=== PATIENT | female | born 1945 | race Caucasian/White ===

== ENCOUNTER 2017-04-25 13:15 | Emergency (ER) | payer OTHER, MEDICAID ==
[2017-04-25 13:43] VITALS: BMI 25.6
--- NOTE | 2017-04-25 13:55 | DR.GENAD ---
HPI - PCP Primary Care Physician: cici - HPI Comment HPI Comment: DIZZINESS AND CONFUSION WITH GENERALIZE WEAKNESS PER PATIENTS DAUGHTER. SHE SAID HER FEET GET DISCOLOR WHEN SHE SIT AND RETURN TO NORMAL COLOR WHEN SHE LAY DOWN. PATIENT HAVE HISTORY OF BRAIN ANEURYSM POST SURGERY. - Complaint/Symptoms Chief Complaint Doctors Comments: DIZZINESS, EVALUATED BY HOME HEALTH NURSE AND REFER TO ED. Chief Complaint:: weakness and period of lightheadedness that has resolved Self Treatment fo Chief Complaint: WAS EVALUATED BY HOME HEALTH NURSE AND INSTRUCTED TO BE EVAULUATED. PT DECIDED TO COME TO OUR FACILTIY AFTER REFUSING TO GO TO [facility] - Nurses notes reviewed Nurses Notes Review: Yes - Source History Provided: Patient, EMS - Mode of Arrival Mode of Arrival: EMS - Timing Onset of Chief Complaint: 04/25/17 Came on: Suddenly - Duration Duration: Since Onset Duration: Hours - Severity Severity: Moderate PMH - PMH Past Medical History: Yes Past Medical History: Arthritis, Hypertension Past Medical History Comment: HX OF BRAIN ANEURYSM WITH REPAIR Past Surgical History: Yes Past Surgical History Comment: BRAIN SURGERY - Family History History of Family Medical Conditions: Yes Family Medical History: Diabetes Mellitus, Cancer, [place], Coronary Artery Disease, Heart Failure, Sudden Cardiac , Hypertension - Social History Does patient currently use any type of tobacco product: Yes Type of Tobacco Use: Cigarettes Lives With: Family Lives Where: Home - infectious screening In the last 2 months have you had wt loss of >10#?: YES Have you had fever, night sweats or hemotysis?: No Have you traveled outside the country in the last 6 months?: No Isolation: Standard ROS - Review of Systems Constitutional: Weakness, Fatigue. negative: Chills, Fever Eyes: No Symptoms Reported. negative: Eye Pain, Discharge ENTM: No Symptoms Reported. negative: Ear Pain, Nose Discharge, Nose Congestion , Throat Pain Respiratoy: Non-Productive Cough, Short of Breath. negative: Wheezing, Hemoptysis Cardiovascular: negative: Chest Pain, Edema, Palpitations Gastrointestinal/Abdominal: Nausea. negative: Abdominal Pain, Vomiting Genitourinary: No Symptoms Reported. negative: Dysuria, Frequency, Hematuria Neurological: Headache, Weakness, Dizziness Musculoskeletal: Back Pain, Muscle Pain Integumentary: Change in Color (FEET TURN BLUE SITTING.) Hematologic/Lymphatic: Easy Bruising Endocrine: No Symptoms Reported All Other Systems: Reviewed and Negative PE - Vital Signs Vitals: Temperature 97 F Pulse Rate 53 Respiratory Rate 14 Blood Pressure 155/67 O2 Sat by Pulse Oximetry 99 - General Limitations: No Limitations General Appearance: Alert - Head Head Exam: Normal Inspection - Eyes Eye exam: PERRL, EOMI. negative: Scleral Icterus, Conjunctival Injection - ENT ENT Exam: Normal External Ear Exam External Ear Exam: Normal External Inspection TM/Canal Exam: Bilateral Normal Nose Exam: Normal Nose Exam Mouth Exam: Normal Inspection Throat Exam: Normal Inspection - Neck Neck Exam: Trachea Midline - Chest Chest Inspection: Symmetric Chest Wall Rise - Respiratory Respiratory Exam: Normal Lung Sounds Bilat Respiratory Exam: Bilateral Rhonchi, Lower Rhonchi - Cardiovascular Cardiovascular Exam: Regular Rate, Normal Rhythm, Normal Heart Sounds - Abdominal Exam Abdominal Exam: Normal Bowel Sounds, Soft. negative: Tenderness - Extremities Extremities Exam: Other (FEET TURN BLUE SITTING.) - Back Back Exam: Normal Inspection - Neurologic Neurological Exam: Alert, Oriented X3 - Psychiatric Psychiatric Exam: Normal Affect, Normal Mood - Skin Skin Exam: Dry, Erythema MDM - Additional Information Additional Information Obtained From: Family - Differential Diagnosis Differential Diagnosis: GENERALIZE WEAKNESS, VERTIGO, CVA, TIA, AMS Course - Consultation Consultation Comments: DISCUSS PATIENT WITH DR. ARNETT. HE WILL ADMIT PATIENT. - Education/Counseling Education/Counseling: Patient, Family, Education Educated On: Diagnosis, Needs for Follow Up ROR - Labs Reviewed Laboratory Results Reviewed?: Yes Result Diagrams: 04/25/17 14:21 04/25/17 14:21 Laboratory: WBC 8.8 X10^3/uL (3.6-10.0) 04/25/17 14:21 RBC 4.47 X10^6/uL (3.5-5.4) 04/25/17 14:21 Hgb 13.5 g/dL (12.0-16.0) 04/25/17 14:21 Hct 40.6 % (36.0-47.0) 04/25/17 14:21 MCV 90.8 fL (80.0-100.0) 04/25/17 14:21 MCH 30.3 pg (27.0-34.0) 04/25/17 14:21 MCHC 33.3 g/dL (33.0-35.0) 04/25/17 14:21 RDW 14.0 % (11.6-16.5) 04/25/17 14:21 Plt Count 234 X10^3/uL (150.0-450.0) 04/25/17 14:21 MPV 7.8 fL (7.4-11.0) 04/25/17 14:21 Neut % 80.1 % (42.0-75.0) H 04/25/17 14:21 Lymph % 14.6 % (21.0-51.0) L 04/25/17 14:21 [place] % 3.9 % (0.0-13.0) 04/25/17 14:21 Eos % 0.7 % (0.9-2.9) L 04/25/17 14:21 Baso % 0.7 % (0.2-1.0) 04/25/17 14:21 Neut # 7.1 x10^3/uL (2.2-4.8) H 04/25/17 14:21 Lymph # 1.3 X10^3/uL (1.3-2.9) 04/25/17 14:21 [place] # 0.3 x10^3/uL (0.3-0.8) 04/25/17 14:21 Eos # 0.1 x10^3/uL (0.0-0.2) 04/25/17 14:21 Baso # 0.1 X10^3/uL (0.0-0.1) 04/25/17 14:21 Absolute Nucleated RBC 0.0 /100WBC 04/25/17 14:21 Sodium 149 mmol/L (136-145) H 04/25/17 14:21 Corrected Sodium 149 mmol/L (136-145) H 04/25/17 14:21 Potassium 4.2 mmol/L (3.5-5.1) 04/25/17 14:21 Chloride 113 mmol/L (98-107) H 04/25/17 14:21 Carbon Dioxide 30.8 mmol/L (21-32) 04/25/17 14:21 BUN 15 mg/dL (7-18) 04/25/17 14:21 Creatinine 0.41 mg/dL (0.55-1.02) L 04/25/17 14:21 Est GFR (MDRD) Af Amer > 60 (>60) 04/25/17 14:21 Est GFR (MDRD) Non-Af > 60 (>60) 04/25/17 14:21 Glucose 119 mg/dL (65-99) H 04/25/17 14:21 Calcium 8.9 mg/dL (8.5-10.1) 04/25/17 14:21 Corrected Calcium 9.6 mg/dL (8.5-10.1) 04/25/17 14:21 Total Bilirubin 0.20 mg/dL (0.2-1.0) 04/25/17 14:21 AST 18 Units/L (15-37) 04/25/17 14:21 ALT 24 Units/L (12-78) 04/25/17 14:21 Alkaline Phosphatase 72 Units/L (46-116) 04/25/17 14:21 Creatine Kinase 149 Units/L (26-192) 04/25/17 16:10 CK-MB (CK-2) 5.4 ng/mL (0-4.0) H* 04/25/17 16:10 CK/CKMB % Calc 3.6 % (<4) 04/25/17 16:10 Troponin I < 0.02 ng/mL (0-1.5) 04/25/17 16:10 Total Protein 6.9 g/dL (6.4-8.2) 04/25/17 14:21 Albumin 3.1 g/dL (3.4-5.0) L 04/25/17 14:21 Globulin 3.8 g/dL (2.5-4.5) 04/25/17 14:21 Albumin/Globulin Ratio 0.8 Ratio (1.1-2.1) L 04/25/17 14:21 - XRAY XRAY Interpreted by: Radiologist XRAY Findings: REPORT DISCUSS WITH PATIENT AND FAMILY. - EKG Rhythm: NSR (EKG NOTED) - Diagnosis Discharge Problem: Generalized weakness, Dizziness Altered mental state Qualifiers: Altered mental status type: transient alteration of awareness Qualified Code(s) : R40.4 - Transient alteration of awareness - Discharge Plan Disposition: 01 HOME, SELF-CARE Condition: Stable - Follow ups/Referrals - Instructions
[2017-04-25 14:31] LABS: BASOPHILS # (AUTO) 0.1 X10^3/uL (0.0-0.1); BASOPHILS % (AUTO) 0.7 % (0.2-1.0); EOSINOPHILS # (AUTO) 0.1 x10^3/uL (0.0-0.2); EOSINOPHILS % (AUTO) 0.7 % (0.9-2.9); HEMATOCRIT 40.6 % (36.0-47.0); HEMOGLOBIN 13.5 g/dL (12.0-16.0); LYMPHOCYTES # (AUTO) 1.3 X10^3/uL (1.3-2.9); LYMPHOCYTES % (AUTO) 14.6 % (21.0-51.0); MEAN CORPUSCULAR HEMOGLOBIN 30.3 pg (27.0-34.0); MEAN CORPUSCULAR HGB CONC 33.3 g/dL (33.0-35.0); MEAN CORPUSCULAR VOLUME 90.8 fL (80.0-100.0); MEAN PLATELET VOLUME 7.8 fL (7.4-11.0); MONOCYTES # (AUTO) 0.3 x10^3/uL (0.3-0.8); MONOCYTES % (AUTO) 3.9 % (0.0-13.0); NEUTROPHILS # (AUTO) 7.1 x10^3/uL (2.2-4.8); NEUTROPHILS % (AUTO) 80.1 % (42.0-75.0); PLATELET COUNT 234 X10^3/uL (150.0-450.0); RED BLOOD COUNT 4.47 X10^6/uL (3.5-5.4); WHITE BLOOD COUNT 8.8 X10^3/uL (3.6-10.0)
--- NOTE | 2017-04-25 15:00 | CT ---
HISTORY: Mental status changes Study: CT brain without contrast Comparison: None Technique: Multiple axial images of the brain were obtained from the skull base to the vertex without administr ation of IV contrast. Findings: The ventricles are mildly enlarged and there is diffuse prominence of the cortical sulci. 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 There is mild compensatory dilatation of the right lateral ventricle. There is an aneu rysm clip along the right supraclinoid region which is causing a large amount of streak artifact in the area. There is a craniotomy flap along the right parietal lobe extending inferiorly into the nod ule and regions which is in good position. No intracranial hemorrhage or edema is seen. There is no extra-axial fluid collection or mass. The midline structures are unremarkable. IMPRESSION: Status post right frontoparietal craniotomy and aneurysm clipping along the right supraclinoid regio n which is causing a large amount of streak artifact in the area. 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 Reported By:
--- NOTE | 2017-04-25 15:09 | RAD ---
HISTORY: Chest pain. Dizziness. Study: Chest one view Comparison: None. Findings: The trachea is deviated to the right. The patient's head is tilted to the right good, and chin obscu res the right lung apex. The cardiac silhouette is unremarkable. The lungs are clear without focal infiltrate or effusion. The bony thorax is unremarkable. IMPRESSION: 1. No acute cardiopulmonary disease. 2. Right lung apex obscured by the patient's chin. Repeat radiograph is recommended. Reported By:
[2017-04-25 15:10] LABS: ALANINE AMINOTRANSFERASE 24 Units/L (12-78); ALBUMIN 3.1 g/dL (3.4-5.0); ALKALINE PHOSPHATASE 72 Units/L (46-116); ASPARTATE AMINO TRANSFERASE 18 Units/L (15-37); BLOOD UREA NITROGEN 15 mg/dL (7-18); CALCIUM 8.9 mg/dL (8.5-10.1); CARBON DIOXIDE 30.8 mmol/L (21-32); CHLORIDE 113 mmol/L (98-107); CKMB % 3.6 % (<4); COR CA(FOR HYPOALB) 9.6 mg/dL (8.5-10.1); COR NA(FOR HYPERGLY) 149 mmol/L (136-145); CREATINE KINASE 157 Units/L (26-192); CREATININE 0.41 mg/dL (0.55-1.02); GLUCOSE 119 mg/dL (65-99); SODIUM 149 mmol/L (136-145); TOTAL PROTEIN 6.9 g/dL (6.4-8.2); TROPONIN I < 0.02 ng/mL (0-1.5); eGFR BLACK RACES > 60 (>60); eGFR NON BLACK RACES > 60 (>60)
[2017-04-25 15:12] LABS: CREATINE KINASE MB 5.6 ng/mL (0-4.0)
[2017-04-25] MEDS ORDERED: ROCEPHIN VIAL 1 GM 1 GM in NS 50 ML IV + SPIKE MINIBAG* 50 ML IV SCH (17:00)
[2017-04-25 17:03] LABS: CKMB % 3.6 % (<4); CREATINE KINASE 149 Units/L (26-192); TROPONIN I < 0.02 ng/mL (0-1.5)
[2017-04-25 17:10] LABS: CREATINE KINASE MB 5.4 ng/mL (0-4.0)
[2017-04-25 20:37] LABS: CKMB % 3.5 % (<4); CREATINE KINASE 149 Units/L (26-192); TROPONIN I < 0.02 ng/mL (0-1.5)
[2017-04-25 20:57] LABS: CREATINE KINASE MB 5.2 ng/mL (0-4.0)
[2017-04-25] MEDS ORDERED: VIBRAMYCIN 100 MG in D5W 250 ML IV 250 ML IV SCH (21:00)
[2017-04-25] MEDS: NS 1000 ML 1,000 ML IV SCH (22:03)
[2017-04-26 03:09] LABS: CKMB % 3.5 % (<4); CREATINE KINASE 144 Units/L (26-192); TROPONIN I < 0.02 ng/mL (0-1.5)
[2017-04-26 06:24] LABS: BASOPHILS % (AUTO) 0.9 % (0.2-1.0); EOSINOPHILS # (AUTO) 0.2 x10^3/uL (0.0-0.2); EOSINOPHILS % (AUTO) 2.8 % (0.9-2.9); HEMATOCRIT 35.8 % (36.0-47.0); HEMOGLOBIN 12.1 g/dL (12.0-16.0); LYMPHOCYTES % (AUTO) 53.3 % (21.0-51.0); MEAN CORPUSCULAR HEMOGLOBIN 30.5 pg (27.0-34.0); MEAN CORPUSCULAR VOLUME 89.9 fL (80.0-100.0); MONOCYTES # (AUTO) 0.5 x10^3/uL (0.3-0.8); MONOCYTES % (AUTO) 8.1 % (0.0-13.0); NEUTROPHILS % (AUTO) 34.9 % (42.0-75.0); PLATELET COUNT 188 X10^3/uL (150.0-450.0); RED BLOOD COUNT 3.98 X10^6/uL (3.5-5.4); RED CELL DISTRIBUTION WIDTH 13.6 % (11.6-16.5); WHITE BLOOD COUNT 5.7 X10^3/uL (3.6-10.0)
[2017-04-26 06:45] LABS: ALANINE AMINOTRANSFERASE 21 Units/L (12-78); ALBUMIN 2.6 g/dL (3.4-5.0); ALKALINE PHOSPHATASE 61 Units/L (46-116); ASPARTATE AMINO TRANSFERASE 15 Units/L (15-37); BLOOD UREA NITROGEN 12 mg/dL (7-18); CALCIUM 8.2 mg/dL (8.5-10.1); CHLORIDE 113 mmol/L (98-107); COR CA(FOR HYPOALB) 9.3 mg/dL (8.5-10.1); CREATININE 0.33 mg/dL (0.55-1.02); GLUCOSE 89 mg/dL (65-99); SODIUM 144 mmol/L (136-145); TOTAL PROTEIN 5.7 g/dL (6.4-8.2); eGFR BLACK RACES > 60 (>60); eGFR NON BLACK RACES > 60 (>60)
[2017-04-26] MEDS ORDERED: NS 100 ML IV 100 ML IV ONE (08:12)
[2017-04-26] MEDS ORDERED: PATIENT'S HOME MEDICATION (Losartan Potassium [Losartan Potassium] 25 MG) PO SCH (09:00)
[2017-04-26] MEDS ORDERED: LASIX IVP SCH (09:00)
[2017-04-26] MEDS: COZAAR PO SCH (09:26)
[2017-04-26] MEDS: NS 1000 ML 1,000 ML IV SCH ×2 (09:27→22:50)
[2017-04-26] MEDS: [UNRECOGNIZED DRUG - OTHER] PO SCH (09:31)
--- NOTE | 2017-04-26 14:42 | CT ---
HISTORY: Altered mental status and dizziness. Rule out vertebral insufficiency. Study: Carotid CTA. Comparison: CT head dated April 25, 2017. Technique: Multiple axial images of carotid arteries from the midbrain to the aortic arch after the administrat ion of IV contrast. Dose reduction techniques including Automated Exposure Control (AEC) and adjust ment of mA and kV were utilized. 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 The visualized carotid arteries, vertebral arteries, basilar artery, and the vessels of the [place] of [place] otherwise demonstrate normal course/caliber without evidence of dissection, aneurys mal dilatation, stenosis, or extravasation. No significant plaque burden. The visualized intracrania l structures appear unchanged. Mild centrilobular emphysematous changes of the visualized lung. Othe rwise, the visualized prevertebral soft tissues and lung apices appear normal for age. IMPRESSION: Unremarkable CTA of the carotid arteries. Reported By:
--- NOTE | 2017-04-26 19:07 | DR.H&P ---
H&P - History & Physical for Day of: H&P Date: 04/25/17 - Chief Complaint Chief Complaint: OJSHI, DIZZINESS, DECREASED MENTAL STATUS PER FAMILY - Allergies Allergies/Adverse Reactions: Allergies Allergy/AdvReac Type Severity Reaction Status Date / Time Morphine Allergy Verified 04/25/17 20:23 - History of Present Illness History of Present Illness: 71 WF FEMALE ADMITTED FROM ER AFTER PRESENTING WITH CO DIZZINESS AND CONFUSION WITH GENERALIZE WEAKNESS PER PATIENTS DAUGHTER. SHE SAID HER FEET GET DISCOLOR WHEN SHE SIT AND RETURN TO NORMAL COLOR WHEN SHE LAY DOWN. PATIENT HAVE HISTORY OF BRAIN ANEURYSM POST SURGERY. PLAN TO ADMIT FOR FURTHER EVALUATION OF AMS AND CONSULT CASE MANAGEMENT FOR NH PLACEMENT - Past Medical History Past Medical History: Arthritis, Hypertension - Past Surgical History Surgical History: , Joint Replacement - Family History Family Medical History: Diabetes Mellitus, Cancer, [place], Coronary Artery Disease, Heart Failure, Sudden Cardiac , Hypertension - Social History Does patient currently use any type of tobacco product: Yes Have you used tobacco products in the last 12 months: Yes Type of Tobacco Use: Cigarettes Does any household member use tobacco: Yes (DAUGHTER SMOKES) Alcohol Use: None Drug Use: None - Medications Home Medications: Rmyzjtqqvoi-Hdzsjtlzwgg-DIS-Brandon [Glucosamine Chondroitin T] 2 tab PO DAILY [History Confirmed 04/25/17] Losartan Potassium 25 mg PO DAILY 04/25/17 [History Confirmed 04/25/17] Quetiapine Fumarate [Seroquel] 50 mg PO HS 04/25/17 [History Confirmed 04/25/17] Sertraline HCl [Zoloft] 50 mg PO HS 04/25/17 [History Confirmed 04/25/17] - Review of Systems Constitutional: Weakness Eyes: No Symptoms Reported ENT: No Symptoms Reported Respiratory: Shortness of Breath Cardiovascular: No Symptoms Reported Gastrointestinal: No Symptoms Reported Genitourinary: No Symptoms Reported Musculoskeletal: Back Pain Skin: No Symptoms Reported Neurological: Weakness - Physical Exam Vital Signs: Temperature 97.8 F Pulse Rate [Left Brachial] 50 Respiratory Rate 18 Blood Pressure [Left Arm] 116/59 O2 Sat by Pulse Oximetry 99 Oriented: Normal Eyes: Normal Ear: Normal Nose: Normal Throat: Normal Respiratory: RLL Diminished, LLL Diminished Cardiovascular: Normal, Edema : Normal Auscultation: Bowel Sounds: Normal Palpation: Normal Tenderness: Normal Skin: Decreased Turgur Musculoskeletal: Back:Thoracic, Back:Lumbar, Motor Deficit (BILATERAL LOWER EXTREMITY WEAKNESS) Mood Description: Calm Speech Pattern: Clear - Assessment/Plan (1) Altered mental state Qualifiers: Altered mental status type: transient alteration of awareness Coma depth: C Coma timing: C Qualified Code(s): R40.4 - Transient alteration of awareness Status: Acute Plan: ADMIT, R/O TIA VS CVA. BP AND LIPID CONTROL. CT HEAD, CTA CAROTIDS. RESUME HOME MEDS. CONSULT CASE MANAGEMENT, PT (2) Hypertension Qualifiers: Hypertension type: H Status: Acute (3) Arthritis Status: Acute (4) Dizziness Status: Acute (5) Generalized weakness Status: Acute
[2017-04-26] MEDS: ZOLOFT PO SCH (20:44)
[2017-04-26] MEDS ORDERED: QUETIAPINE FUMARATE 50 MG PO SCH (21:00)
[2017-04-26 22:58] LABS: BILIRUBIN,URINE NEGATIVE (NEGATIVE); BLOOD/HEMOGLOBIN,URINE 1+ (NEGATIVE); GLUCOSE, URINE NEGATIVE (NEGATIVE); KETONES,URINE NEGATIVE (NEGATIVE); LEUKOCYTE ESTERASE ,URINE 1+ (NEGATIVE); NITRITES,URINE NEGATIVE (NEGATIVE); PROTEIN,URINE NEGATIVE (NEGATIVE); UROBILINOGEN,URINE NORMAL (NORMAL)
[2017-04-26 23:16] LABS: APPEARANCE,URINE SLIGHTLY HAZY (CLEAR); BACTERIA,URINE 3+ /HPF (NEGATIVE); COLOR,URINE YELLOW (YELLOW); SQUAMOUS EPITHELIAL CELL,UR FEW /HPF (NEGATIVE)
--- NOTE | 2017-04-27 06:15 | RAD ---
HISTORY: Chest pain Study: Chest one view Comparison: April 25, 2017 Findings: The patient is rotated to the left. The heart is within normal limits in size. The katheryn are normal. The lungs are well inflated and free of acute infiltrates. No pleural effusions are identified. The bony thorax is unremarkable. IMPRESSION: No significant abnormality identified Reported By:
[2017-04-27 06:17] LABS: BASOPHILS % (AUTO) 0.9 % (0.2-1.0); EOSINOPHILS # (AUTO) 0.2 x10^3/uL (0.0-0.2); EOSINOPHILS % (AUTO) 2.6 % (0.9-2.9); HEMATOCRIT 34.6 % (36.0-47.0); HEMOGLOBIN 11.8 g/dL (12.0-16.0); LYMPHOCYTES # (AUTO) 2.6 X10^3/uL (1.3-2.9); LYMPHOCYTES % (AUTO) 43.9 % (21.0-51.0); MEAN CORPUSCULAR HEMOGLOBIN 30.7 pg (27.0-34.0); MEAN CORPUSCULAR HGB CONC 34.1 g/dL (33.0-35.0); MEAN PLATELET VOLUME 8.3 fL (7.4-11.0); MONOCYTES # (AUTO) 0.4 x10^3/uL (0.3-0.8); MONOCYTES % (AUTO) 7.5 % (0.0-13.0); NEUTROPHILS # (AUTO) 2.6 x10^3/uL (2.2-4.8); NEUTROPHILS % (AUTO) 45.1 % (42.0-75.0); PLATELET COUNT 186 X10^3/uL (150.0-450.0); RED BLOOD COUNT 3.84 X10^6/uL (3.5-5.4); RED CELL DISTRIBUTION WIDTH 13.9 % (11.6-16.5); WHITE BLOOD COUNT 5.9 X10^3/uL (3.6-10.0)
--- NOTE | 2017-04-27 06:35 | VAS ---
HISTORY: Altered mental status Study: Carotid sonogram Comparison: None Technique: Multiple mcduffie scale and color flow Doppler images of the right and left carotid arterial system were obtained. The vertebral arterial system was evaluated as well. Findings: Normal color flow Doppler is seen throughout the right and left carotid arterial system. No hemodyn amically significant stenosis is seen based on velocity criteria. The right and left vertebral skyler myranda demonstrate antegrade flow. IMPRESSION: 1. No hemodynamically significant stenosis. Reported By:
[2017-04-27 06:44] LABS: ALANINE AMINOTRANSFERASE 19 Units/L (12-78); ALBUMIN 2.4 g/dL (3.4-5.0); ALKALINE PHOSPHATASE 62 Units/L (46-116); ASPARTATE AMINO TRANSFERASE 15 Units/L (15-37); BLOOD UREA NITROGEN 12 mg/dL (7-18); CALCIUM 8.3 mg/dL (8.5-10.1); CARBON DIOXIDE 24.2 mmol/L (21-32); CHLORIDE 114 mmol/L (98-107); COR CA(FOR HYPOALB) 9.6 mg/dL (8.5-10.1); CREATININE 0.32 mg/dL (0.55-1.02); GLUCOSE 96 mg/dL (65-99); SODIUM 148 mmol/L (136-145); TOTAL PROTEIN 5.5 g/dL (6.4-8.2); eGFR BLACK RACES > 60 (>60); eGFR NON BLACK RACES > 60 (>60)
[2017-04-27] MEDS ORDERED: NS 1/2 1000 ML IV 1,000 ML IV ONE (08:38)
[2017-04-27] MEDS: [UNRECOGNIZED DRUG - OTHER] PO SCH (08:50)
[2017-04-27] MEDS: COZAAR PO SCH (08:51)
[2017-04-27] MEDS ORDERED: NS 1/2 1000 ML IV 1,000 ML IV SCH (09:00)
[2017-04-27] MEDS ORDERED: BUTT CREAM (COMPOUND) TOP PRN (09:44)
--- NOTE | 2017-04-27 13:18 | PCM.PROG ---
Progress Note - Progress Note for Day of Date: 04/26/17 - Subjective Subjective: 71 WF ADMITTED ONE DAY AGO WITH JOSHI AND DIZZINESS. PT DENIES ANY JOSHI OR DIZZINES THIS AM. PT STATE SHE'S NOT SURE WHY SHE WAS ADMITTED. PT HAS POSSIBLE UTI AND CULTURES PENDING. PT HAS CTA CAROTIDS ORDERED. PT INFORMED OF DIAGNOSTIC TESTS AND LABS RESULTS PLAN TO REPEAT AM LABS. DISCUSSED PLAN OF CARE FOR DISCHARGE. PT A/O REFUSED CARE HOME PLACEMENT - Past Medical Family Social History Past Med/Fam/Surg Hx: No changes since H&P Allergies: Allergies Morphine Allergy (Verified 04/25/17 20:23) - Review of Systems ROS: No change since H&P - Vital Signs and I&O's Vital Signs: Temperature 97.6 F Pulse Rate [Left Brachial] 50 Respiratory Rate 17 Blood Pressure [Left Arm] 140/73 O2 Sat by Pulse Oximetry 99 Intake and Output: Intake & Output 04/25/17 04/26/17 04/27/17 04/28/17 11:59 11:59 11:59 11:59 Intake Total 1035 2415 Output Total 350 Balance 1035 2065 - Physical Exam Oriented: Normal, Time, Person, Place Eyes: Normal Ear: Normal Nose: Normal Throat: Normal Respiratory: Diminished (MILD DIMINISHED LUNG BASES) Cardiovascular: Normal, Edema : Normal Auscultation: Bowel Sounds: Normal Tenderness: Normal Skin: Decreased Turgur Musculoskeletal: Back:Thoracic, Back:Lumbar, Motor Deficit (BILATERAL LOWER EXTREMITY WEAKNESS) Mood Description: Calm Speech Pattern: Clear, Appropriate - Laboratory and Diagnostics Result Diagrams: 04/27/17 05:32 04/27/17 05:32 Labs: 04/26/17 22:40 Urine,Clean Catch Urine Culture - Preliminary Laboratory WBC 5.9 X10^3/uL (3.6-10.0) 04/27/17 05:32 RBC 3.84 X10^6/uL (3.5-5.4) 04/27/17 05:32 Hgb 11.8 g/dL (12.0-16.0) L 04/27/17 05:32 Hct 34.6 % (36.0-47.0) L 04/27/17 05:32 MCV 90.0 fL (80.0-100.0) 04/27/17 05:32 MCH 30.7 pg (27.0-34.0) 04/27/17 05:32 MCHC 34.1 g/dL (33.0-35.0) 04/27/17 05:32 RDW 13.9 % (11.6-16.5) 04/27/17 05:32 Plt Count 186 X10^3/uL (150.0-450.0) 04/27/17 05:32 MPV 8.3 fL (7.4-11.0) 04/27/17 05:32 Neut % 45.1 % (42.0-75.0) 04/27/17 05:32 Lymph % 43.9 % (21.0-51.0) 04/27/17 05:32 [place] % 7.5 % (0.0-13.0) 04/27/17 05:32 Eos % 2.6 % (0.9-2.9) 04/27/17 05:32 Baso % 0.9 % (0.2-1.0) 04/27/17 05:32 Neut # 2.6 x10^3/uL (2.2-4.8) 04/27/17 05:32 Lymph # 2.6 X10^3/uL (1.3-2.9) 04/27/17 05:32 [place] # 0.4 x10^3/uL (0.3-0.8) 04/27/17 05:32 Eos # 0.2 x10^3/uL (0.0-0.2) 04/27/17 05:32 Baso # 0.0 X10^3/uL (0.0-0.1) 04/27/17 05:32 Absolute Nucleated RBC 0.0 /100WBC 04/27/17 05:32 Sodium 148 mmol/L (136-145) H 04/27/17 05:32 Corrected Sodium TNP 04/27/17 05:32 Potassium 3.5 mmol/L (3.5-5.1) 04/27/17 05:32 Chloride 114 mmol/L (98-107) H 04/27/17 05:32 Carbon Dioxide 24.2 mmol/L (21-32) 04/27/17 05:32 BUN 12 mg/dL (7-18) 04/27/17 05:32 Creatinine 0.32 mg/dL (0.55-1.02) L 04/27/17 05:32 Est GFR (MDRD) Af Amer > 60 (>60) 04/27/17 05:32 Est GFR (MDRD) Non-Af > 60 (>60) 04/27/17 05:32 Glucose 96 mg/dL (65-99) 04/27/17 05:32 Calcium 8.3 mg/dL (8.5-10.1) L 04/27/17 05:32 Corrected Calcium 9.6 mg/dL (8.5-10.1) 04/27/17 05:32 Total Bilirubin 0.20 mg/dL (0.2-1.0) 04/27/17 05:32 AST 15 Units/L (15-37) 04/27/17 05:32 ALT 19 Units/L (12-78) 04/27/17 05:32 Alkaline Phosphatase 62 Units/L (46-116) 04/27/17 05:32 Creatine Kinase 144 Units/L (26-192) 04/26/17 02:05 CK-MB (CK-2) 5.0 ng/mL (0-4.0) H* 04/26/17 02:05 CK/CKMB % Calc 3.5 % (<4) 04/26/17 02:05 Troponin I < 0.02 ng/mL (0-1.5) 04/26/17 02:05 Total Protein 5.5 g/dL (6.4-8.2) L 04/27/17 05:32 Albumin 2.4 g/dL (3.4-5.0) L 04/27/17 05:32 Globulin 3.1 g/dL (2.5-4.5) 04/27/17 05:32 Albumin/Globulin Ratio 0.8 Ratio (1.1-2.1) L 04/27/17 05:32 Specimen Type Clean catch urine 04/26/17 22:40 Urine Color Yellow (YELLOW) 04/26/17 22:40 Urine Appearance Slightly hazy (CLEAR) 04/26/17 22:40 Urine pH 5.0 (5.0 - 8.0) 04/26/17 22:40 Ur Specific [place] 1.020 (1.000-1.030) 04/26/17 22:40 Urine Protein Negative (NEGATIVE) 04/26/17 22:40 Urine Glucose (UA) Negative (NEGATIVE) 04/26/17 22:40 Urine Ketones Negative (NEGATIVE) 04/26/17 22:40 Urine Occult Blood 1+ (NEGATIVE) 04/26/17 22:40 Urine Nitrite Negative (NEGATIVE) 04/26/17 22:40 Urine Bilirubin Negative (NEGATIVE) 04/26/17 22:40 Urine Urobilinogen Normal (NORMAL) 04/26/17 22:40 Ur Leukocyte Esterase 1+ (NEGATIVE) 04/26/17 22:40 Urine RBC 2-4 /HPF (NEGATIVE) 04/26/17 22:40 Urine WBC 2-3 /HPF (NEGATIVE) 04/26/17 22:40 Ur Squamous Epith Cells Few /HPF (NEGATIVE) 04/26/17 22:40 Urine Bacteria 3+ /HPF (NEGATIVE) 04/26/17 22:40 Ur Culture Indicated? Yes/culture set up 04/26/17 22:40 - Plan (1) Altered mental state Status: Acute Qualifiers: Altered mental status type: transient alteration of awareness Coma depth: C Coma timing: C Qualified Code(s): R40.4 - Transient alteration of awareness Plan: BP AND LIPID CONTROL. CT HEAD, CTA CAROTIDS. RESUME HOME MEDS. CONSULT CASE MANAGEMENT, PT (2) Hypertension Status: Acute Qualifiers: Hypertension type: H (3) Arthritis Status: Acute (4) Dizziness Status: Acute Plan: RESOLVED, CTA CAROTIDS PENDING (5) Generalized weakness Status: Acute
[2017-04-27] MEDS: ZOLOFT PO SCH (20:04)
[2017-04-28] MEDS: COZAAR PO SCH (09:19)
[2017-04-28 12:11] VITALS: BP 124/61
== END 2017-04-28 12:25 ==
LOC: ER 13:35 → OBS 20:45 → MED/SURG 04-27 18:00
PROVIDERS: ADMIT Internal Medicine; ATTEND Internal Medicine
DX: R40.4 Transient alteration of awareness (principal); R42 Dizziness and giddiness; R52 Pain, unspecified; R51 Headache; R53.1 Weakness; M13.89 Other specified arthritis, multiple sites; I10 Essential (primary) hypertension; R06.02 Shortness of breath; R26.89 Other abnormalities of gait and mobility
CPT/HCPCS: 36415; 70450; 70498; 71010; 80053; 81001; 82550; 82553; 84484; 85025; 87040; 87086; 93005; 93010; 93306; 93880; 94760; 96365; 97535; 99284; A4222; G8978; G8979; G8987; G8988; G0378